=== PATIENT | female | born 1950 | race Caucasian/White ===

== ENCOUNTER 2023-04-29 08:27 | Observation (INO) | payer OTHER, SELFPAY ==
[2023-04-29] VITALS (18 sets, daily range): BP systolic 113–147; BP diastolic 72–93; PULSE 49–65; RESP 15–20; TEMP 36.4–36.8; O2SAT 97–100; BMI 26.6
--- NOTE | 2023-04-29 08:28 | EDS_ITS ---
HPI History of Present Illness Chief Complaint: Chest Pain Narrative Narrative: Patient presents with chest pain since yesterday, it was quite intense and she called EMS this morning. I received a prehospital EKG which showed an inferior STEMI. Range Management Specialist was activated and is ready for the patient upon arrival. I talked and examined the patient prior to her going to the Range Management Specialist. She says her pain is improving with nitroglycerin. She had received Brilinta, heparin, aspirin prior to arrival ROS ROS ED ROS Narrative Past medical history: Hypercholesterolemia, no other cardiac pathologies Medications: Reviewed Social history: Noncontributory Review of systems: General: No fevers Eyes: No visual changes ENT: No upper airway congestion, normal voice Neck: No neck pain Cardiovascular: Chest pain as in HPI Respiratory: No shortness of breath or cough Gastrointestinal: No abdominal pain, nausea vomiting or diarrhea Musculoskeletal: Denies myalgias no difficulty with ambulation Skin: No rash EXAM Physical Exam Narrative Exam Narrative: Physical exam General: She is somewhat tearful she is anxious but does not appear in significant distress Head: Normocephalic, Atraumatic Neck: Supple, Nontender, No lymphadenopathy Cardiovascular: Regular rate, Regular rhythm. I cannot appreciate any murmurs. Respiratory: No distress, CTA bilaterally Abdomen: Soft, Nontender, Nondistended Extremities: Nontender, No edema Skin: Normal color, No rash MDM MDM MDM Narrative Medical decision making narrative: Prehospital EKG interpreted by me shows an acute STEMI. She received medications via EMS from I communicated with prior to arrival. director of labor and delivery was ready for the patient upon ED arrival. Patient was seen in the ED briefly and then she was transferred to the Range Management Specialist. I discussed with in shop service technician. She has been stable in the ED. Critical Care Time Critical Care Time: Yes Critical care time (excluding procedures): - (20 minutes. Critical care time involved time prior to patient arrival of making Range Management Specialist accommodations, talking to the STEMI physician. It involved time at the bedside and time documenting after patient left the ED.) Discharge Plan Triage Chief Complaint: Chest Pain ED Provider: Roshan Mays Dx/Rx/DC Orders Primary Care Provider: Care Physician,No Primary
--- NOTE | 2023-04-29 08:40 | NURSING ---
PUBLIC SERVICE DIRECTOR [facility]
[2023-04-29 08:48] LABS: Absolute Lymphocyte Count 2.25 X10^3/uL (0.83-4.51); Absolute Neutrophil Count 3.4 X10^3/uL (2.0-7.7); Basophil# 0.05 X10^3/uL; Basophil% 0.8 % (0-1); Eosinophil# 0.12 X10^3/uL; Eosinophils% 1.9 % (0-5); Hematocrit 40.4 % (37-47); Hemoglobin 14.3 g/dL (12.0-15.0); Lymphocyte # 2.25 X10^3/ul (0.83-4.51); Lymphocyte % 35.9 % (19-41); Mean Corp Hgb Conc 35.4 g/dL (32-36); Mean Corpuscular Hgb 31.8 pg (27.0-32.0); Mean Corpuscular Volume 89.8 fL (81-99); Mean Platelet Vol. 10.3 fl (6.2-12.0); Monocyte# 0.43 X10^3/uL; Monocyte% 6.9 % (0-10); NRBC Flagged by Analyzer 0 % (0-5); Neutrophil # 3.39 X10^3/uL (2.7-7.7); Neutrophil % 54.2 % (47-70); Platelet Count 228 K/mm3 (150-450); RBC Distribution Width CV 12.1 % (11.6-14.6); RBC Distribution Width SD 39.2 fl (35.1-43.9); White Blood Count 6.3 K/mm3 (4.4-11.0)
--- NOTE | 2023-04-29 08:59 | NURSING ---
NO OLD EKGS
[2023-04-29 09:00] LABS: D-Dimer Quantitative (DVT/PE) < 0.27 FEU/ug/m (0.27-0.49)
[2023-04-29 09:02] LABS: ALB/GLOB Ratio 1.2 RATIO (0.9-2.4); AST(SGOT) 37 U/L (15-37); Alanine Aminotransfer ALT/SGPT 48 U/L (13-56); Albumin, Serum 3.6 g/dL (3.2-5.0); Alkaline Phosphatase 53 U/L (45-117); Anion Gap 6 (5-15); BUN 16 mg/dL (7-18); BUN/Creat Ratio 15.4 RATIO (10-20); Calcium,Total 9.1 mg/dL (8.5-10.1); Chloride 111 mmol/L (98-107); Creatinine, Serum 1.04 mg/dL (0.55-1.02); EST Glomerular Filtration Rate 56 mL/min (>60); Est Glom Filt Rate - Afr Amer 67 mL/min (>60); Globulin 3.1 g/dL (2.2-4.2); Glucose 121 mg/dL (74-106); Protein, Total 6.7 g/dL (6.4-8.2); Sodium Level 143 mmol/L (136-145)
[2023-04-29 09:05] LABS: Prothrombin Time (Protime)PT. 13.6 SECONDS (11.7-14.9)
[2023-04-29 09:20] LABS: Partial Thromboplast Time 144.5 Seconds (24.1-36.2)
--- NOTE | 2023-04-29 09:27 | HP.PCM.HOS_ITS ---
HPI - General General Date of Admission: 04/29/23 Date of Service: 04/29/23 Chief Complaint: Chest pain HPI Narrative COTY GROSSMAN, is a 72 F with past medical history significant for hyperlipidemia who presented to the [facility] ED on 04/29/2023 via EMS as a STEMI alert. Saw patient in the PCU after she was transported there from the [facility]. Cath report showed that patient had only mild coronary disease but had findings consistent with Takotsubo cardiomyopathy. Patient's was present at the bedside for my encounter. Patient states that her chest pain is now largely resolved. States her chest pain began yesterday morning. She received very difficult family news around that time. She has had chest pain somewhat like this before and reports a negative stress test about 6 months ago. However, this chest pain persisted and was worse in nature than any pain she had experienced. Patient takes fenofibrate for high cholesterol and some [id number] vitamins; she otherwise takes no other medications. She is not a smoker. No alcohol use. She denies any other significant past medical history. She currently denies any shortness of breath, lower extremity edema, fevers or chills, abdominal pain or fullness, or lightheadedness. She currently lives with her in an in [place]. 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 She is very active in her daily life. She has no other acute concerns at this time. [facility] Medical History High cholesterol Allergy/AdvReac Type Severity Reaction Status Date / Time Penicillins Allergy Hives Verified 04/29/23 09:16 Family History unable to obtain no significant family history Surgical History no surgical history no surgical history Social History Smoking Status: Never smoker ROS Eyes Eyes: Denies blurry vision or double vision ENT HEENT: Denies headache(s) Cardiovascular Cardiovascular: Reports chest pain; Denies dyspnea on exertion, edema, lightheadedness, orthopnea, palpitations or syncope Respiratory/Chest Respiratory/Chest: Denies cough or dyspnea Gastrointestinal Gastrointestinal: Denies abdominal pain, constipation, diarrhea, nausea or vomiting Genitourinary Genitourinary: Denies dysuria Musculoskeletal Musculoskeletal: Denies arthralgias or myalgias Psychiatric Psychiatric: Denies anxiety or depression Endocrine Endocrinology: Denies cold intolerance or heat intolerance Hematologic/Lymphatic Hematologic/Lymphatic: Denies easy bleeding or easy bruising Vital Signs Vital Signs Vital Signs: 04/29/23 08:30 04/29/23 09:17 04/29/23 09:17 Temperature 98 F Temperature Source Temporal Pulse Rate 56 L 65 Respiratory Rate 16 18 Blood Pressure 135/84 H 147/77 H Blood Pressure Mean 101 100 Pulse Ox 99 98 Oxygen Delivery Method Room Air Room Air Room Air Weight Weight: 88.5 kg Body Mass Index (BMI) 0.0 Physical Exam Const alert, oriented x3, no apparent distress, average body habitus, healthy appearing and well nourished Constitutional Narrative: Pleasant female, sitting comfortably in bed, conversing normally, breathing comfortably on room air, no acute distress. General Appearance: cooperative, comfortable and well kempt HEENT normocephalic, head/scalp atraumatic, hearing grossly normal bilaterally, nasal mucous membranes and turbinates normal and moist oral mucous membranes Eyes PERRL, EOMs intact bilaterally and conjunctivae normal Neck full ROM and supple Chest inspection of chest normal Resp normal respiratory effort, normal air movement, no use of accessory muscles and clear to auscultation bilaterally Cardio regular rhythm, no murmurs and peripheral pulses 2+ throughout Cardio Narrative: Tachycardic. GI normal to inspection, nondistended, normoactive bowel sounds, soft to palpation, non-tender and non-distended Back/Spine normal ROM Extremity normal to inspection, full ROM and no pedal edema Skin no rashes or lesions noted Psych mental status grossly normal Results Lab / Micro Data 04/29/23 08:38 04/29/23 08:38 Labs: Laboratory Results - last 24 hr 04/29/23 08:38: WBC 6.3, RBC 4.50, Hgb 14.3, Hct 40.4, MCV 89.8, MCH 31.8, MCHC 35.4, RDW Std Deviation 39.2, RDW Coeff of [place] 12.1, Plt Count 228, MPV 10.3, Immature Gran % (Auto) 0.300, Neut % (Auto) 54.2, Lymph % (Auto) 35.9, [place] % (Auto) 6.9, Eos % (Auto) 1.9, Baso % (Auto) 0.8, Absolute Neuts (auto) 3.4, Absolute Lymphs (auto) 2.25, Nucleated RBC % 0, PT 13.6 04/29/23 08:38: PT Cancelled, INR 1.0 04/29/23 08:38: INR Cancelled, APTT 144.5 H*, D-Dimer Quant (PE/DVT) < 0.27 L, Sodium 143 04/29/23 08:38: Sodium Cancelled, Potassium 4.0 04/29/23 08:38: Potassium Cancelled, Chloride 111 H 04/29/23 08:38: Chloride Cancelled, Carbon Dioxide 26.0 04/29/23 08:38: Carbon Dioxide Cancelled, Anion Gap 6 04/29/23 08:38: Anion Gap Cancelled, BUN 16 04/29/23 08:38: BUN Cancelled, Creatinine 1.04 H 04/29/23 08:38: Creatinine Cancelled, Est GFR (MDRD) Af Amer 67 04/29/23 08:38: Est GFR (MDRD) Af Amer Cancelled, Est GFR (MDRD) Non-Af 56 L 04/29/23 08:38: Est GFR (MDRD) Non-Af Cancelled, BUN/Creatinine Ratio 15.4 04/29/23 08:38: BUN/Creatinine Ratio Cancelled, Glucose 121 H 04/29/23 08:38: Glucose Cancelled, Calcium 9.1 04/29/23 08:38: Calcium Cancelled, Total Bilirubin 0.30, AST 37, ALT 48, Alkaline Phosphatase 53, Total Protein 6.7, Albumin 3.6, Globulin 3.1, Albumin/Globulin Ratio 1.2 Assessment & Plan Assessment/Plan (1) Takotsubo cardiomyopathy: PLAN: Plan Patient is a 72-year-old female with past medical history significant for hyperlipidemia who presented on 04/29 as a STEMI alert. On left heart cath, was found to have only mild coronary disease but did have findings consistent with stress-induced cardiomyopathy. She was admitted for further management. 1. Stress-induced cardiomyopathy?suspect secondary to current life stressors. She does report being a fairly anxious person at baseline as well, has never t aken any medication for this. Initial EKG from EMS appeared to show a STEMI. However subsequent EKGs done in the ED showed no evidence of STEMI. Left heart cath showed mild coronary artery disease, as well as mid LV severe hypokinesis consistent with apical sparing variant of Takotsubo cardiomyopathy. Cardiology following. Initiated on lisinopril 2.5 mg daily, Coreg 3.125 mg twice daily and aspirin 81 mg daily. No need for Plavix at this time. They recommended that patient switch from fenofibrate to a statin; however on further discussion with the patient, she has strong reservations about taking a statin and would like to remain on fenofibrate for now. Will continue her home fenofibrate. Lipid panel shows total cholesterol 192, LDL 120, HDL 48. TSH normal. Hemoglobin A1c 4.8%. Transthoracic echocardiogram ordered. Patient will need to remain on these medications with repeat echo in 6 to 8 weeks and subsequent follow-up with cardiology in the office. If patient remains stable, will likely be okay for discharge home tomorrow. 2. Hyperlipidemia?continue home fenofibrate given patient's reservations about starting a statin. 3. Hypertension?no previous diagnosis. Blood pressure in the 140s to 150s on admission, may have been secondary to her compensatory response for stress- induced cardiomyopathy. Started on Coreg and lisinopril as above. Monitor BP. DVT prophylaxis: Lovenox CODE STATUS: Full code, verified Total clinical time spent by myself addressing the patient's medical issues, reviewing all of the data, and collaborating with patient's care team: 55 minutes. Charges/Coding Visit Charges Inpatient E&M: 40643 Init Hosp L2
[2023-04-29 09:28] LABS: Troponin-I HS 5627 pg/mL (3.0-54.0)
--- NOTE | 2023-04-29 09:43 | NURSING ---
PCU MOSTELLAR OBS STEMI
[2023-04-29 10:21] LABS: Magnesium 2.2 mg/dL (1.6-2.6)
--- NOTE | 2023-04-29 10:45 | CON.PCM.CA_ITS ---
Assessment & Plan Assessment/Plan (1) Chest pain: QUALIFIERS: Chest pain type: unspecified Qualified Code(s): R07.9 - Chest pain, unspecified PLAN: Secondary to Takotsubo cardiomyopathy. Patient does have mild underlying CAD. It is reasonable to keep her on aspirin 81 mg p.o. daily and switch from fenofibrate to a statin. (2) Takotsubo cardiomyopathy: PLAN: Patient will be started on lisinopril 2.5 mg p.o. daily and Coreg 3.125 mg p.o. twice daily. HPI Consult Data Date of Consult: 04/29/23 HPI Narrative Reason for Consultation: Chest pain HPI Narrative: COTY GROSSMAN, is a 72 F who presents with chest pain that started yesterday. Patient received some very stressful news yesterday and had chest pain all evening yesterday. She took a baby aspirin yesterday for this pain and eventually it got better. She went to sleep and this morning got up with chest pain. Chest pain was getting worse so she called 911. An EKG done by the paramedics which revealed subtle inferior ST elevation and a STEMI alert was called. Repeat EKG done in the hospital did not reveal any ST elevation RI. Patient was then evaluated in the emergency room. She continued to have chest pain and her troponin was elevated. After discussing risks and benefits she was brought to the Documentation Billing Clerk and underwent coronary angiography which revealed mild coronary artery disease, mid LV severe hypokinesis consistent with apical sparing variant of Takotsubo cardiomyopathy. Patient is being admitted to the PCU for further management of Takotsubo cardiomyopathy. Review of systems: All systems reviewed. All else is negative except that in the [facility] Medical History (Updated 04/29/23 @ 10:[address] Tammy Alvarenga MD) High cholesterol Allergy/AdvReac Type Severity Reaction Status Date / Time Penicillins Allergy Hives Verified 04/29/23 09:16 Family History unable to obtain Social History Smoking Status: Unknown if ever smoked Physical Exam Const alert and oriented x3 HEENT normocephalic Eyes no scleral icterus Resp normal respiratory effort Cardio regular rate Skin no rashes or lesions noted Psych mental status grossly normal Risk Stratification Risk Stratification Applicable: No Charges/Coding Visit Charges Inpatient E&M: 15182 Init Hosp L2 Objective Data Vital Signs: Vital Signs Temp Pulse Resp BP Pulse Ox O2 Del Method 98 F 56 L 20 H 129/86 H 99 Room Air 04/29/23 09:55 04/29/23 09:55 04/29/23 09:55 04/29/23 09:55 04/29/23 09:55 04/29/23 09:55 Oxygen Delivery Method Room Air Weight: 195 lb 1.745 oz Body Mass Index (BMI) 0.0 Lab / Micro Data 04/29/23 08:38 04/29/23 08:38 Labs: Laboratory Results - last 24 hr 04/29/23 08:38: WBC 6.3, RBC 4.50, Hgb 14.3, Hct 40.4, MCV 89.8, MCH 31.8, MCHC 35.4, RDW Std Deviation 39.2, RDW Coeff of [place] 12.1, Plt Count 228, MPV 10.3, Immature Gran % (Auto) 0.300, Neut % (Auto) 54.2, Lymph % (Auto) 35.9, [place] % (Auto) 6.9, Eos % (Auto) 1.9, Baso % (Auto) 0.8, Absolute Neuts (auto) 3.4, Absolute Lymphs (auto) 2.25, Nucleated RBC % 0, PT 13.6 04/29/23 08:38: PT Cancelled, INR 1.0 04/29/23 08:38: INR Cancelled, APTT 144.5 H*, D-Dimer Quant (PE/DVT) < 0.27 L, Sodium 143 04/29/23 08:38: Sodium Cancelled, Potassium 4.0 04/29/23 08:38: Potassium Cancelled, Chloride 111 H 04/29/23 08:38: Chloride Cancelled, Carbon Dioxide 26.0 04/29/23 08:38: Carbon Dioxide Cancelled, Anion Gap 6 04/29/23 08:38: Anion Gap Cancelled, BUN 16 04/29/23 08:38: BUN Cancelled, Creatinine 1.04 H 04/29/23 08:38: Creatinine Cancelled, Est GFR (MDRD) Af Amer 67 04/29/23 08:38: Est GFR (MDRD) Af Amer Cancelled, Est GFR (MDRD) Non-Af 56 L 04/29/23 08:38: Est GFR (MDRD) Non-Af Cancelled, BUN/Creatinine Ratio 15.4 04/29/23 08:38: BUN/Creatinine Ratio Cancelled, Glucose 121 H 04/29/23 08:38: Glucose Cancelled, Calcium 9.1 04/29/23 08:38: Calcium Cancelled, Magnesium 2.2, Total Bilirubin 0.30, AST 37, ALT 48, Alkaline Phosphatase 53, Troponin I High Sens 5627 H*, Total Protein 6.7, Albumin 3.6, Globulin 3.1, Albumin/Globulin Ratio 1.2 Cardiology Labs/Tests 04/29/23 08:38: WBC 6.3, RBC 4.50, Hgb 14.3, Hct 40.4, MCV 89.8, MCH 31.8, MCHC 35.4, Plt Count 228, MPV 10.3, Immature Gran % (Auto) 0.300, Neut % (Auto) 54.2, Lymph % (Auto) 35.9, [place] % (Auto) 6.9, Eos % (Auto) 1.9, Baso % (Auto) 0.8, Absolute Neuts (auto) 3.4, Nucleated RBC % 0, PT 13.6 04/29/23 08:38: PT Cancelled, INR 1.0 04/29/23 08:38: INR Cancelled, APTT 144.5 H*, D-Dimer Quant (PE/DVT) < 0.27 L, Sodium 143 04/29/23 08:38: Sodium Cancelled, Potassium 4.0 04/29/23 08:38: Potassium Cancelled, Chloride 111 H 04/29/23 08:38: Chloride Cancelled, Carbon Dioxide 26.0 04/29/23 08:38: Carbon Dioxide Cancelled, Anion Gap 6 04/29/23 08:38: Anion Gap Cancelled, BUN 16 04/29/23 08:38: BUN Cancelled, Creatinine 1.04 H 04/29/23 08:38: Creatinine Cancelled, Est GFR (MDRD) Af Amer 67 04/29/23 08:38: Est GFR (MDRD) Af Amer Cancelled, Est GFR (MDRD) Non-Af 56 L 04/29/23 08:38: Est GFR (MDRD) Non-Af Cancelled, BUN/Creatinine Ratio 15.4 04/29/23 08:38: BUN/Creatinine Ratio Cancelled, Glucose 121 H 04/29/23 08:38: Glucose Cancelled, Calcium 9.1 04/29/23 08:38: Calcium Cancelled, Magnesium 2.2, Total Bilirubin 0.30 Rhythm: EKG: ECHO: Stress Test: Cardiac Cath: PCI: CT Surgery: Holter monitor: EPS: PPM: CXR: Chest CT Scan:
[2023-04-29 10:56] LABS: Hemoglobin A1c 4.8 % (3.8-5.6)
--- NOTE | 2023-04-29 11:32 | ECHOCS_ITS ---
Reason For Study: TAKOTSUBO CMP Procedure This was a 2D Doppler, Color Flow transthoracic echocardiogram. The study was technically difficult. Contrast injection was performed. Exam performed portable in patient room. Left Ventricle Normal LV size. The estimated ejection fraction is 50-55 %. No evidence for diastolic dysfunction. hypokinesis of the basal inferior and lateral wall. Right Ventricle Normal RV size. Normal systolic function. Atria Normal left atrium. Normal right atrium. No doppler evidence for ASD. Mitral Valve There is no mitral valve stenosis. Trivial mitral valve insufficiency. Tricuspid Valve There is no tricuspid stenosis. Trivial tricuspid valve insufficiency. Unable to estimate RV systolic pressure due to insufficient tricuspid regurgitant envelope. Aortic Valve The aortic valve is not well visualized. There is no aortic stenosis. No aortic valve insufficiency. Pulmonic Valve There is no pulmonic valvular stenosis. No pulmonic valve insufficiency. Great Vessels Normal aortic root. Pericardium/Pleural No pericardial effusion. Medication Diluted definity 2ml given slow IV push to enhance endocardial definition. MMode/2D Measurements & Calculations LVIDd: 4.8 cm IVSd: 1.2 cm Ao root diam: 3.3 cm LVIDs: 4.0 cm LVPWd: 1.5 cm RVDd: 3.2 cm FS: 18.2 % LAV(MOD-bp): 57.2 ml LVAd ap4: 35.9 cm2 SV(MOD-sp4): 73.0 ml LAV(MOD-bp) Indexed: 31.0 ml/m2 LVLd ap4: 7.9 cm LAV(MOD-sp2): 53.9 ml EDV(MOD-sp4): 135.6 ml LAV(MOD-sp4): 48.8 ml EDV(sp4-el): 139.3 ml LVAs ap4: 22.3 cm2 LVLs ap4: 6.7 cm ESV(MOD-sp4): 62.6 ml ESV(sp4-el): 62.6 ml EF(MOD-sp4): 53.8 % EF(sp4-el): 55.1 % SV(sp4-el): 76.7 ml LA A4 area: 17.7 cm2 LA dimension(2D): 4.1 cm RA A4 area: 14.7 cm2 Time Measurements MV dec time: 0.29 sec Doppler Measurements & Calculations MV E max jaron: 61.0 cm/sec Lat Peak E' Jaron: 6.4 cm/sec Med Peak E' Jaron: 4.9 cm/sec MV A max jaron: 75.9 cm/sec E/E' lat: 9.5 E/E' med: 12.5 MV E/A: 0.80 MV V2 max: 78.5 cm/sec MV dec slope: 223.4 cm/sec2 LV V1 max: 127.4 cm/sec MV max P.5 mmHg LV V1 max P.5 mmHg MV V2 mean: 42.8 cm/sec LV V1 mean P.1 mmHg MV mean P.83 mmHg LV V1 mean: 81.4 cm/sec MV V2 VTI: 29.2 cm LV V1 VTI: 27.6 cm PA V2 max: 114.4 cm/sec PA V2 mean: 85.4 cm/sec ECHO/Echo Complete W/ Contrast Interpretation Summary The estimated ejection fraction is 50-55 %. No evidence for diastolic dysfunction. hypokinesis of the basal inferior and lateral wall Trivial mitral valve insufficiency. Ordering Physician: Fracisco Barnes Referring Physician: Tammy Alvarenga Performed By: Alta Tony RCS
[2023-04-29] MEDS: 0.9% Saline Lock 10 ML Syringe IV (11:56)
[2023-04-29] MEDS: 0.9% Normal Saline 1,000 ML 60 ML IV (11:56)
[2023-04-29 13:16] LABS: Cholesterol 192 mg/dL (200); High Density Lipoprotein 48 mg/dL; Thyroid Stim Hormone (TSH) 1.47 uIU/mL (0.358-3.74); Triglycerides 118 mg/dL; Very Low Density Lipoprotein 24 mg/dL (5-40)
[2023-04-29] MEDS: Carvedilol 3.125 MG TABLET PO (21:02)
[2023-04-30 02:53] VITALS: BP 110/59; PULSE 54; RESP 18; TEMP 36.6; O2SAT 97
[2023-04-30 06:02] VITALS: BP 112/57; PULSE 53; RESP 18; TEMP 36.6; O2SAT 95
[2023-04-30 08:08] VITALS: O2SAT 95
[2023-04-30 09:05] VITALS: BP 108/67; PULSE 55; RESP 16; TEMP 36.6; O2SAT 96
[2023-04-30 09:07] LABS: Anion Gap 7 (5-15); BUN 15 mg/dL (7-18); BUN/Creat Ratio 14.7 RATIO (10-20); Calcium,Total 9.1 mg/dL (8.5-10.1); Chloride 110 mmol/L (98-107); Creatinine, Serum 1.02 mg/dL (0.55-1.02); EST Glomerular Filtration Rate 57 mL/min (>60); Est Glom Filt Rate - Afr Amer 69 mL/min (>60); Estimated Creatinine Clearance 48.04 ml/min; Glucose 136 mg/dL (74-106); Sodium Level 141 mmol/L (136-145)
[2023-04-30] MEDS: Aspirin 81 MG TAB.CHEW PO (09:12)
[2023-04-30] MEDS: Fenofibrate 145 MG Tablet PO (09:12)
[2023-04-30] MEDS: Lisinopril 2.5 MG Tablet PO (09:13)
[2023-04-30] MEDS: Carvedilol 3.125 MG TABLET PO (09:13)
--- NOTE | 2023-04-30 10:23 | CASEMGMT ---
GABBIE LOPEZ in to complete LYNCH Form. GABBIE LOPEZ explained LYNCH form to patient, patient voiced understanding. Patient signed LYNCH Form and filed in chart. Patient provided with copy of signed LYNCH form. Patient had no further questions or concerns at this time.
--- NOTE | 2023-04-30 11:33 | DS.PCM_ITS ---
Providers Date of Admission: 04/29/23 Date of Discharge: 04/30/23 Primary Care Physician: Dr. Joseph Dumas, DO Cardiology Reason For Visit: STEMI Diagnosis Discharge Diagnosis (1) Takotsubo cardiomyopathy: Status: Acute Code(s): I51.81 - Takotsubo syndrome Medications at Discharge Home Medications fenofibrate micronized 134 mg capsule 134 mg PO DAILY 04/29/23 aspirin 81 mg chewable tablet 81 mg PO BREAKFAST #0 tabs 04/30/23 carvedilol 3.125 mg tablet 3.125 mg PO BID #60 tabs 04/30/23 lisinopril 2.5 mg tablet 2.5 mg PO DAILY #30 tabs 04/30/23 Hospital Course Procedures 2-D Echocardiogram, Cardiac catheterization and EKG Summary of Care Provided Minutes Spent on Discharge: 37 Hospital Course: Mrs. Mckeon is a 72-year-old white female with a past medical history significant for hyperlipidemia who presented to the emergency department at [facility] on 04/29/2023 via EMS as a STEMI alert. She was taken emergently for cardiac catheterization and her cardiac cath showed only mild coronary artery disease but had apical ballooning consistent with Takotsubo cardiomyopathy. Patient admitted that she had chest pain on arrival and she had had this before with negative stress test previously about 6 months ago. Upon presentation though she reported that her pain was worse than she had experienced before. She denied any associated shortness of breath, nausea, or vomiting. She denied any lower extremity edema, fever or chills. The patient did admit she was under quite a bit of stress and is very active at baseline. Per [employer] documentation she was noted again to have mild coronary disease but she had mid LV severe hypokinesis consistent with apical sparing most notably found in Takotsubo cardiomyopathy. Her troponin was all dated on presentation at 5627. Given these findings on [employer] an echocardiogram was ordered and demonstrated an EF of 50 to 55% with hypokinesis of the basal inferior and lateral wall and no diastolic dysfunction. She was placed on goal-directed therapy with Coreg 3.125 p.o. twice daily and lisinopril 2.5 mg p.o. twice daily. It was recommended that she stay on aspirin 81 mg daily for now and a statin was recommended however patient declined stating she would prefer to stay on her fenofibrate. She indicated she had extensive discussion with her primary care physician and given the fact that she actually did not have coronary disease that caused this she would like to continue with the fenofibrate rather than the statin. She had no telemetry events overnight from 04/29/2023 to 04/30/2023 and felt was stable for discharge home. Prescriptions for lisinopril and Coreg were sent to her pharmacy and she was instructed to continue aspirin 81 mg daily. 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 She was discharged home in stable condition on 04/30/2023. Discharge diagnoses: Chest pain-resolved Troponin elevation Takotsubo cardiomyopathy Hyperglycemia-hemoglobin A1c was 4.8 Hyperlipidemia Physical Exam Const alert, oriented x3, no apparent distress, average body habitus, no limitations, healthy appearing and well nourished Constitutional Narrative: Pleasant, older, white female, lying in bed, appears comfortable and nontoxic, moves independently with bed mobility to sit on the edge of the bed for exam General Appearance: cooperative, comfortable, well kempt and well developed Orientation / Consciousness: awake, oriented to person, oriented to place and oriented to time Exam Limitations: no limitations HEENT normocephalic, head/scalp atraumatic, hearing grossly normal bilaterally and moist oral mucous membranes HEENT Narrative: Mallampati 2, no thrush Eyes PERRL, EOMs intact bilaterally and conjunctivae normal Eyes Narrative: No scleral icterus Neck no lymphadenopathy and supple Neck Narrative: Trachea midline, no thigh Resp normal respiratory effort, no retractions, no use of accessory muscles and clear to auscultation bilaterally Auscultation: Negative for rales, rhonchi or wheezes Cardio regular rate, regular rhythm, S1 normal heart sound, S2 normal heart sound, no murmurs, no rub, no gallops and no clicks GI normal to inspection, nondistended, normoactive bowel sounds, soft to palpation and non-tender Extremity no clubbing, cyanosis or edema Extremity Narrative: Pedal pulses were 2+ Skin no rashes or lesions noted, no wounds and no jaundice Neuro oriented x3, moves all extremities and no focal motor deficits Neuro Narrative: Moves independently bed to sit on the edge of the bed for exam Speech: speech normal Psych affect normal Psych Narrative: Very pleasant, interacts appropriately, eye contact is good Weight / BMI Weight Weight: 75 kg Body Mass Index (BMI) 26.6 ABG / Lab / Microbiology Data 04/29/23 08:38 04/30/23 08:38 Laboratory: Laboratory Results - last 24 hr 04/29/23 08:38: Triglycerides 118, Cholesterol 192, LDL Cholesterol 120, VLDL Cholesterol 24, HDL Cholesterol 48, TSH 1.47 04/30/23 08:38: Sodium 141, Potassium 4.0, Chloride 110 H, Carbon Dioxide 24.0, Anion Gap 7, BUN 15, Creatinine 1.02, Estim Creat Clear Calc 48.04, Est GFR (MDRD) Af Amer 69, Est GFR (MDRD) Non-Af 57 L, BUN/Creatinine Ratio 14.7, Glucose 136 H, Calcium 9.1 Radiography Diagnostic Testing: Radiology Impression Echocardiogram 04/29/23 11:32 Interpretation Summary The estimated ejection fraction is 50-55 %. No evidence for diastolic dysfunction. hypokinesis of the basal inferior and lateral wall Trivial mitral valve insufficiency. Ordering Physician: Fracisco Barnes Referring Physician: Tammy Alvarenga Performed By: Alta Tony RCS D/C Instructions Discharge Diet: Low fat / Low cholesterol Discharge Activity: Return to Normal Activity Return to work on: 05/04/23 Meaningful Use Info Meaningful Use Diagnoses (Choose all that apply): None applicable Discharge Plan Admission Admit Date/Time: 04/29/23 09:33 Primary Reason for Your Visit: Chest pain Attending Provider: Selma Mcnulty Primary Care Provider: Joseph Dumas Consulting Providers: Fracisco Barnes Instructions Additional Instructions / Restrictions: Please restrict fluid intake to approximately 2 L daily Please utilize a diet that is no salt added and monitor sodium intake Discharge Orders/Prescriptions Prescriptions: New aspirin 81 mg Tablet,Chewable 81 mg PO BREAKFAST Qty: 0 0RF carvedilol 3.125 mg Tablet 3.125 mg PO BID Qty: 60 1RF lisinopril 2.5 mg Tablet 2.5 mg PO DAILY Qty: 30 1RF Continued fenofibrate micronized 134 mg capsule 134 mg PO DAILY Referrals / Follow Up: Joseph Dumas DO [Primary Care Provider] - Within 2 Weeks Nitza Cheung PA [Med Staff - [facility] Practice Prof] - 05/18/23 9:30 am Disposition Disposition (needs filled in before D/C Order can be placed): Home, Self Care Charges/Coding Visit Charges Inpatient E&M: 04384 Disch Hosp >30min
--- NOTE | 2023-05-04 07:44 | CL.D_ITS ---
Patient Name: COTY GROSSMAN Study Date: 04/29/2023 Performing: Padmini Alvarenga MD Ht: 0 inches 0 cm : 1950 Wt: 195.4 lbs 88.5 kg Age: 72 Gender: female BSA: 0 PROCEDURE(S) PERFORMED [id number])LHC/COR/LV CLINICAL PROFILE AND INDICATIONS Indications: ACS <= 24 hrs Heart Failure: None Stress/Imaging Stress/Image Study Performed: No CAD Presentations: Non-STEMI. Symptom onset Date/Time: 04/28/23 Time Not Available CONCLUSIONS Mild nonobstructive coronary artery disease. LVEF is 45% with mid LV hypokinesis consistent with apical sparing variant of Takotsubo cardiomyopathy. No significant aortic stenosis or mitral regurgitation. RECOMMENDATIONS DESCRIPTION OF PROCEDURE The patient arrived to the procedure lab. The risks and benefits of the procedure as well as a full description of our services here and current unavailability of surgical backup were fully explained to the patient and/or their significant other prior to the catheterization. The Timeout was completed, verifying the correct patient and procedure. The patient's procedural site was prepped and draped in the usual fashion. Local anesthetic was given subcutaneously to right radial region with Lidocaine 2%. Using a modified Seldinger technique, arterial access was obtained via the right radial artery, a 6Fr sheath was inserted. Right Coronary Artery selective angiography was then performed in multiple views using a 5 Fr. JR 4 catheter. Left Ventriculography was performed in DELA CRUZ projection using a 5 Fr. JR4. LV to AO pullback pressures were then recorded. Left Coronary Artery selective angiography was performed in multiple views using a 5 Fr. JL3.5 catheter.The arterial sheath was pulled and a TR Band was applied for hemostasis CORONARY ANGIOGRAPHY DOMINANCE: Right Dominant LEFT HEART ASSESSMENT Left Ventricular Ejection Fraction: by LV Gram 45 % Abnormal LV wall motion. Severe hypokinesis of the mid LV consistent with apical sparing variant of Takotsubo cardiomyopathy. LEFT MAIN: Mild luminal irregularities LEFT ANTERIOR DESCENDING ARTERY: Mild luminal irregularities CIRCUMFLEX ARTERY: PROX CIRC: 20 % Stenosis RIGHT CORONARY ARTERY: Mild luminal irregularities VALVE FINDINGS: No Aortic Valve Stenosis No Mitral Insufficiency COMPLICATIONS No Complications PROCEDURE MEDICATIONS Fentanyl 50 mcg IV Versed 1 mg IV Oxygen: 2 L/min via nasal cannula Heparin given IA 04/29/2023 10:15:36 Verapamil 2.5mg, Ntg 100mcgs, 3000 units of Heparin given IA 04/29/2023 10:15:36 SUMMARY OF HEMODYNAMIC DATA Time AIR REST ECG 09:59:25 AO 130/71 (98) SA 10:17:57 LV 115/4, 16 10:20:10 LV 114/3, 18 10:20:19 LV 115/13, 38 10:20:56 LV 121/7, 11 10:21:06 LVp 111/13, 21 10:21:15 AOp 121/72 (94) 10:21:22 Signed By Padmini Alvarenga MD On 05/04/2023 07:43:30 Padmini Alvarenga MD
== END 2023-04-30 11:36 | disposition home or self-care (01) ==
LOC: ED 09:49 → PCU 10:32
PROVIDERS: Admitting Provider Hospitalist; Emergency Provider Emergency Medicine; PCP Family Medicine; Referring Provider Specialist; Visit Provider Internal Medicine
DX: I51.81 Takotsubo syndrome (principal); E78.00 Pure hypercholesterolemia, unspecified; I25.10 Atherosclerotic heart disease of native coronary artery without angina pectoris; I10 Essential (primary) hypertension; I08.1 Rheumatic disorders of both mitral and tricuspid valves
CPT/HCPCS: 36415; 80048; 80053; 80061; 83036; 83735; 84443; 84484; 85025; 85379; 85610; 85730; 93005; 93306; 93458; 99152; 99153; 99221; 99285; J7030; Q9957; Q9967; A4216; C1769; C1894; C8929; G0378